=== PATIENT | male | born 1940 | race Caucasian/White ===

== ENCOUNTER → 2017-04-06 | Outpatient (CLI) | payer MEDICARE ==
[~2017-04-06] MED LIST: CETI10; [UNRECOGNIZED DRUG - REMARK]
[2017-04-06 12:34] LABS: BASOPHILS ABSOLUTE AUTO 0.08 K/mm3 (0.00-0.23); BASOPHILS PERCENT AUTO 0 % (0-2); EOSINOPHILS ABSOLUTE AUTO 0.01 K/mm3 (0.00-0.68); EOSINOPHILS PERCENT AUTO 0 % (0-6); Hematocrit 42.6 % (37.0-53.0); Hemoglobin 14.7 g/dL (13.5-17.5); Mean Corpuscular HGB 32.9 pg (26.0-34.0); Mean Corpuscular HGB Conc 34.5 g/dL (31.5-36.5); Mean Corpuscular Volume 95 fL (80-100); Mean Platelet Volume 9.7 fL (9.1-12.4); Platelet Count 124 K/mm3 (150-400); RDW Coefficient Variation 13.1 % (11.7-14.2); RDW Standard Deviation 45.6 fL (35.1-46.3); Red Blood Cell Count 4.47 M/mm3 (4.30-5.90); White Blood Cell Count 25.08 K/mm3 (4.00-11.30)
[2017-04-06 12:38] LABS: Alanine Aminotransfer (ALT/SGP 33 U/L (12-78); Albumin, Blood 3.7 g/dL (3.4-5.0); Albumin/Globulin Ratio 1.3 (0.8-1.8); Alk Phos 92 U/L (40-126); Anion Gap 5 mmol/L (6-16); Aspartate Aminotrans (AST/SGOT 25 U/L (12-37); Bilirubin, Total 0.5 mg/dL (0.1-1.0); Blood Urea Nitrogen 14 mg/dL (8-24); Bun/Creatinine Ratio 14.1 (12.0-20.0); CO2, Blood 30 mmol/L (21-32); Calcium, Blood 8.6 mg/dL (8.5-10.1); Chloride, Blood 101 mmol/L (98-108); Creatinine, Blood 0.99 mg/dL (0.60-1.20); Globulin, Blood 2.8 g/dL (2.2-4.0); Glomerular Filtration Rate >60 (60-); Glucose, Blood 109 mg/dL (70-99); Potassium, Blood 3.7 mmol/L (3.5-5.5); Sodium, Blood 136 mmol/L (136-145); Total Protein, Blood 6.5 g/dL (6.4-8.2)
[2017-04-06 14:03] LABS: BAND PERCENT MAN 1 % (0-8); BASOPHILS PERCENT MAN 0 % (0-2); EOSINOPHILS PERCENT MAN 0 % (0-6); LYMPHOCYTES % ATYPICAL MANUAL 7 % (0-0); MONOCYTES PERCENT MAN 1 % (4-13); SEG NEUTROPHILS PERCENT MAN 8 % (41-73); TOTAL CELLS COUNTED 100
[2017-04-06 14:06] LABS: IMMATURE GRAN ABSOLUTE AUTO 0.04 K/mm3 (0.00-0.10); IMMATURE GRAN PERCENT AUTO 0 % (0-1); LYMPHOCYTES ABSOLUTE AUTO 20.92 K/mm3 (0.84-5.20); MONOCYTES ABSOLUTE AUTO 1.31 K/mm3 (0.16-1.47); MONOCYTES PERCENT AUTO 5 % (4-13); NEUTROPHILS ABSOLUTE AUTO 2.72 K/mm3 (1.96-9.15); NEUTROPHILS PERCENT AUTO 11 % (41-73)
[2017-04-06 14:08] LABS: LYMPHOCYTES ABSOLUTE MAN 22.57 K/mm3 (0.84-5.20); LYMPHOCYTES PERCENT MAN 83 % (21-46)
[2017-04-06 14:12] LABS: LYMPHOCYTES PERCENT AUTO 83 % (21-46)
== END ==
LOC: LAB SHORT 12:17
PROVIDERS: Emergency Medicine
DX: R06.00 Dyspnea, unspecified (principal)
CPT/HCPCS: 80053; 85025

== ENCOUNTER → 2019-05-22 | Outpatient (CLI) | payer MEDICARE ==
[2019-05-22 18:37] LABS: BASOPHILS ABSOLUTE AUTO 0.05 K/mm3 (0.00-0.23); BASOPHILS PERCENT AUTO 0 % (0-2); EOSINOPHILS ABSOLUTE AUTO 0.05 K/mm3 (0.00-0.68); EOSINOPHILS PERCENT AUTO 0 % (0-6); IMMATURE GRAN ABSOLUTE AUTO 0.09 K/mm3 (0.00-0.10); IMMATURE GRAN PERCENT AUTO 1 % (0-1); LYMPHOCYTES ABSOLUTE AUTO 2.24 K/mm3 (0.84-5.20); LYMPHOCYTES PERCENT AUTO 18 % (21-46); MONOCYTES ABSOLUTE AUTO 0.71 K/mm3 (0.16-1.47); MONOCYTES PERCENT AUTO 6 % (4-13); Mean Corpuscular HGB 32.1 pg (26.0-34.0); Mean Corpuscular Volume 94 fL (80-100); Mean Platelet Volume 9.6 fL (9.1-12.4); NEUTROPHILS ABSOLUTE AUTO 9.33 K/mm3 (1.96-9.15); NEUTROPHILS PERCENT AUTO 75 % (41-73); Platelet Count 226 K/mm3 (150-400); RDW Coefficient Variation 14.5 % (11.7-14.2); RDW Standard Deviation 49.7 fL (35.1-46.3); Red Blood Cell Count 4.99 M/mm3 (4.30-5.90); White Blood Cell Count 12.47 K/mm3 (4.00-11.30)
[2019-05-22 18:46] LABS: Albumin, Blood 3.9 g/dL (3.4-5.0); Albumin/Globulin Ratio 1.1 (0.8-1.8); Bilirubin, Total 0.4 mg/dL (0.1-1.0); Bun/Creatinine Ratio 19.5 (12.0-20.0); Calcium, Blood 9.2 mg/dL (8.5-10.1); Creatinine, Blood 1.18 mg/dL (0.60-1.20); Globulin, Blood 3.4 g/dL (2.2-4.0); Potassium, Blood 4.1 mmol/L (3.5-5.5); Total Protein, Blood 7.3 g/dL (6.4-8.2)
== END | disposition home or self-care (01) ==
LOC: LAB SHORT 18:32 → LAB EV 18:32
PROVIDERS: Physician Assistant
DX: R34 Anuria and oliguria (principal)
CPT/HCPCS: 80053; 85025

== ENCOUNTER 2020-09-23 22:48 | Emergency (ER) | payer OTHER, MEDICARE ==
[~2020-09-23] VITALS: Ht 172.7 cm; Wt 56.7 kg
[2020-09-24] MEDS ORDERED: Norco 5-325 Ta1 EACH PO (11:25)
== END 2020-09-24 02:51 | disposition home or self-care (01) ==
LOC: ER 22:48
DX: S01.01XA Laceration without foreign body of scalp, initial encounter (principal); M25.512 Pain in left shoulder; W01.10XA Fall on same level from slipping, tripping and stumbling with subsequent striking against unspecified object, initial encounter
CPT/HCPCS: 12001; 70450; 73030; 96374-59; 99284-25; J2405

== ENCOUNTER 2021-04-22 19:54 | Inpatient (IN) | payer MEDICARE ==
[~2021-04-22] VITALS: Ht 177.8 cm; Wt 63.5 kg
[~2021-04-22 19:54] MED LIST changes: +Norco 5-325 Ta1 EACH PO
[2021-04-22] MEDS ORDERED: BUME2 PO (20:15)
[2021-04-22] MEDS ORDERED: PRAVASTATIN SOD40 MG PO (20:15)
[2021-04-22] MEDS ORDERED: Ventolin/Prove6.7 GM INH (20:15)
[2021-04-22 20:18] LABS: Hematocrit 44.2 % (37.0-53.0); Hemoglobin 14.8 g/dL (13.5-17.5); Mean Corpuscular HGB 31.2 pg (26.0-34.0); Mean Corpuscular HGB Conc 33.5 g/dL (31.5-36.5); Mean Corpuscular Volume 93 fL (80-100); Mean Platelet Volume 10.1 fL (9.1-12.4); NRBC ABSOLUTE 0.03 K/mm3 (0.00-0.02); NRBC Auto 0.1 /100 WBC (0.0-0.2); Platelet Count 180 K/mm3 (150-400); RDW Coefficient Variation 13.4 % (11.7-14.2); RDW Standard Deviation 45.8 fL (35.1-46.3); Red Blood Cell Count 4.75 M/mm3 (4.30-5.90); White Blood Cell Count 29.16 K/mm3 (4.00-11.30)
[2021-04-22 20:59] LABS: Albumin, Blood 2.9 g/dL (3.4-5.0); Albumin/Globulin Ratio 0.9 (0.8-1.8); Bilirubin, Total 0.5 mg/dL (0.1-1.0); Bun/Creatinine Ratio 28.6 (12.0-20.0); Creatinine, Blood 1.19 mg/dL (0.60-1.20); Globulin, Blood 3.3 g/dL (2.2-4.0); Potassium, Blood 3.6 mmol/L (3.5-5.5); Thyroid Stimulating Hormone 1.87 uIU/mL (0.360-4.800); Total Protein, Blood 6.2 g/dL (6.4-8.2)
[2021-04-22 21:03] LABS: BASOPHILS PERCENT MAN 0 % (0-2); EOSINOPHILS ABSOLUTE MAN 0.87 K/mm3 (0.00-0.68); EOSINOPHILS PERCENT MAN 3 % (0-6); LYMPHOCYTES % ATYPICAL MANUAL 3 % (0-0); LYMPHOCYTES ABSOLUTE MAN 20.99 K/mm3 (0.84-5.20); LYMPHOCYTES PERCENT MAN 69 % (21-46); MONOCYTES ABSOLUTE MAN 1.45 K/mm3 (0.16-1.47); MONOCYTES PERCENT MAN 5 % (4-13); MYELOCYTE ABSOLUTE MAN 0.29 K/mm3 (0.00-0.00); MYELOCYTE PERCENT MAN 1 % (0-0); NEUTROPHILS ABSOLUTE MAN 5.54 K/mm3 (1.96-9.15); SEG NEUTROPHILS PERCENT MAN 19 % (41-73); TOTAL CELLS COUNTED 100
[2021-04-23 00:37] LABS: Hematocrit 41.4 % (37.0-53.0); Hemoglobin 13.7 g/dL (13.5-17.5); Mean Corpuscular HGB 31.3 pg (26.0-34.0); Mean Corpuscular HGB Conc 33.1 g/dL (31.5-36.5); Mean Corpuscular Volume 95 fL (80-100); Mean Platelet Volume 9.8 fL (9.1-12.4); Platelet Count 162 K/mm3 (150-400); RDW Coefficient Variation 13.6 % (11.7-14.2); RDW Standard Deviation 47.1 fL (35.1-46.3); Red Blood Cell Count 4.38 M/mm3 (4.30-5.90); White Blood Cell Count 25.85 K/mm3 (4.00-11.30)
[2021-04-23 00:57] LABS: Albumin, Blood 2.8 g/dL (3.4-5.0); Bilirubin, Total 0.4 mg/dL (0.1-1.0); Bun/Creatinine Ratio 26.5 (12.0-20.0); Calcium, Blood 8.7 mg/dL (8.5-10.1); Creatinine, Blood 1.17 mg/dL (0.60-1.20); Globulin, Blood 2.8 g/dL (2.2-4.0); Potassium, Blood 3.4 mmol/L (3.5-5.5); Total Protein, Blood 5.6 g/dL (6.4-8.2)
[2021-04-23 01:00] LABS: BAND PERCENT MAN 1 % (0-8); BASOPHILS PERCENT MAN 0 % (0-2); EOSINOPHILS PERCENT MAN 0 % (0-6); LYMPHOCYTES % ATYPICAL MANUAL 2 % (0-0); LYMPHOCYTES PERCENT MAN 87 % (21-46); MONOCYTES ABSOLUTE MAN 0.77 K/mm3 (0.16-1.47); MONOCYTES PERCENT MAN 3 % (4-13); NEUTROPHILS ABSOLUTE MAN 2.06 K/mm3 (1.96-9.15); SEG NEUTROPHILS PERCENT MAN 7 % (41-73); TOTAL CELLS COUNTED 100
[2021-04-23 04:29] LABS: Influenza A, PCR NEGATIVE (NEGATIVE); Influenza B, PCR NEGATIVE (NEGATIVE); Resp Syncytial Virus, PCR NEGATIVE (NEGATIVE); SARS-Cov-2 (COVID-19) PCR, MMC NEGATIVE (NEGATIVE)
[2021-04-23 05:59] LABS: Source, Urine Clean Catch
[2021-04-23 06:04] LABS: Bilirubin, Urine Neg (Neg); Blood, Urine Neg (Neg); Glucose Qualitative, Urine Neg (Neg); Ketones, Urine 1+ (Neg); Leukocyte Esterase, Urine Neg (Neg); Nitrite, Urine Neg (Neg); Protein, Urine 1+ (Neg); Urobilinogen, Urine NORM (Normal)
--- NOTE | 2021-04-23 06:21 | NUR ---
NEW ADMIT FROM THE ED. SOFTWARE TEAM LEADER COMPLETED SPUTUM SAMPLE , COVID TEST, AND UA ORDERS IN CHART. PATIENT ON 3 LITERS NASAL CANNULA. PATIENT SKIN APPEARS TO BE GOOD MINUS UPPER EXTREMITY BRUISING. PATIENT CURRENTLY IN BED WITH STABLE VITALS. WILL REPORT TO ONCOMING NURSE UPON ARRIVAL.
[2021-04-23 06:27] LABS: Appearance, Urine Clear (Clear); Color, Urine Yellow (P-Yellow)
[2021-04-23] MEDS ORDERED: POTA10T PO (09:38)
[2021-04-23] MEDS ORDERED: ASPI81CH PO (09:41)
[2021-04-23] MEDS ORDERED: B-121000 MC7 PO (09:43)
[2021-04-23] MEDS ORDERED: Hair, Skin & N1 EACH PO (09:43)
[2021-04-23] MEDS ORDERED: Vitamin D1000 UNI1 PO (09:44)
--- NOTE | 2021-04-23 11:02 | NUR ---
LEFT VOCERA VMAIL FOR PT AND OT ABOUT EVALUTATIONS. TELE SR 80 PER TRANSFER SPECIALIST.
--- NOTE | 2021-04-23 14:12 | NUR ---
UPDATED PATIENT'S SPOUSE VIA PHONE.
--- NOTE | 2021-04-23 15:56 | NUR ---
NEWLY ADMITTED LAST NIGHT. O2 AT 3 LPM NASAL CANNULA. RESPIRATIONS EVEN AND UNLABORED. PT EVALUATED PATIENT. STATED HE WOULD NEED GAIT BELT AND WALKER TO [facility] BUT CAN NOT BE LEFT ALONE DUE TO BALANCE ISSUES. PATIENT HAD A COUPLE EPISODES OF HALLUCINATIONS BRIEFLY TODAY STATING HE SAW A BIRD IN THE ROOM, THAT HIS FEET WERE DISCOLORED WHEN THEY WEREN'T. PATIENT REASSURED AND REORIENTED BUT OTHER THAN THOSE TWO TIMES HE WAS ORIENTED X 4 TODAY. UPDATED TWO FAMILY MEMBERS VIA PHONE TODAY. MEDICATED PER E-MAR. IS IN USE. TOLERATED PO FOOD AND FLUIDS. HE WAS VERY IMPULSIVE WANTING TO JUMP OUT OF BED A FEW TIMES. BED ALARM IN USE. WILL MONITOR.
--- NOTE | 2021-04-24 04:04 | NUR ---
PATIENT WAS IN HIS BED UPON ARRIVAL AND SHIFT CHANGE. PATIENT DECLINES ANY PAIN. PATIENT CONTINUES TO GET MORE CONFUSED THE LATER IT GETS. PATIENT STILL HAS A RED BLANCHABLE AREA ON RIGHT HIP. DRESSING PROVIED FOR PROTECTION FROM FURTHER BREAKDOWN. PATIENT STATED THAT HE SLEEPS ON THAT SIDE EVER SINCE BREAKING BONE IN LEFT ARM. NO OTHER CONCERNS AT THIS TIME. WILL REPORT TO ONCOMING NURSE UPON ARRIVAL.
[2021-04-24 04:36] LABS: Hematocrit 37.6 % (37.0-53.0); Hemoglobin 12.5 g/dL (13.5-17.5); Mean Corpuscular HGB 31.1 pg (26.0-34.0); Mean Corpuscular HGB Conc 33.2 g/dL (31.5-36.5); Mean Corpuscular Volume 94 fL (80-100); Mean Platelet Volume 9.9 fL (9.1-12.4); NRBC ABSOLUTE 0.02 K/mm3 (0.00-0.02); NRBC Auto 0.1 /100 WBC (0.0-0.2); Platelet Count 167 K/mm3 (150-400); RDW Coefficient Variation 13.7 % (11.7-14.2); RDW Standard Deviation 47.2 fL (35.1-46.3); Red Blood Cell Count 4.02 M/mm3 (4.30-5.90); White Blood Cell Count 20.46 K/mm3 (4.00-11.30)
[2021-04-24 05:04] LABS: Anion Gap 6 mmol/L (6-16); Blood Urea Nitrogen 21 mg/dL (8-24); Bun/Creatinine Ratio 20.8 (12.0-20.0); CO2, Blood 26 mmol/L (21-32); Calcium, Blood 8.3 mg/dL (8.5-10.1); Chloride, Blood 110 mmol/L (98-108); Creatinine, Blood 1.01 mg/dL (0.60-1.20); Glomerular Filtration Rate >60 (60-); Glucose, Blood 84 mg/dL (70-99); Potassium, Blood 3.8 mmol/L (3.5-5.5); Sodium, Blood 142 mmol/L (136-145)
[2021-04-24 07:20] LABS: BASOPHILS PERCENT MAN 0 % (0-2); EOSINOPHILS PERCENT MAN 1 % (0-6); LYMPHOCYTES % ATYPICAL MANUAL 3 % (0-0); LYMPHOCYTES PERCENT MAN 86 % (21-46); MONOCYTES PERCENT MAN 1 % (4-13); NEUTROPHILS ABSOLUTE MAN 1.84 K/mm3 (1.96-9.15); SEG NEUTROPHILS PERCENT MAN 9 % (41-73); TOTAL CELLS COUNTED 100
--- NOTE | 2021-04-24 09:32 | NUR ---
@ 0991, TELE SR 91.
--- NOTE | 2021-04-24 11:17 | NUR ---
PATIENT ASSISTED BACK TO BED FROM CHAIR AFTER PT SESSION.
--- NOTE | 2021-04-24 13:12 | NUR ---
Initial Interview with [facility] Laboratory Technician 1. Who did you speak with? Spoke with patient 2. What is the patient's prior level of functions? Patient lives independently with spouse Jessica. Patient is able to perform ADLs with minimal assistance. He uses a 2 WW and also has a rollator. He uses a wheelchair when he is out and about for long duration of time. He has access to a shower chair, but able to shower without the need of a chair at this time. His perform housekeeping and cooking. Patient has a ramp on the property; single story dwelling. 3. Is the patient and/or family able to provide transportation to and from doctor's appointments and pick and shovel man prescriptions? 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 He is able to provide transportation to and from appointments and pick and shovel man medication from pharmacy as needed. 4. Does patient still drive? Yes 5. POA/PCP/NOK: Spouse Jessica [phone] 6. Discharge goals: Date TBD -Home Health preference: [facility] -DME: TBD -Medication Management: self manages -Preferred Pharmacy: [facility] -Housekeeping/Cooking: performs housekeeping and cooking 7. List barriers to discharge: None known at this time 8. Discharge Plan: TBD 9. PCP Follow up appointment: Will be scheduled within seven calendar days of discharge
--- NOTE | 2021-04-24 18:34 | NUR ---
PT/OT WORKED WITH PATIENT TODAY. RESPIRATIONS EVEN AND UNLABORED. O2 AT 3 LPM PER NASAL CANNULA. PT/OT WORKED WITH PATIENT TODAY. PATIENT SAT IN THE CHAIR AFTER PT SESSION FOR A SHORT PERIOD OF TIME BECAUSE HE WANTED TO REST. MEDICATED PER E=MAY. BED ALARM IN USE. PATIENT PLEASANT AND COOPERATIVE, ORIENTED TO SELF AND TO SITUATION AT TIMES. REPORT WILL BE GIVEN TO ONCOMING SHIFT AT 1845.
[2021-04-25 05:18] LABS: Hematocrit 41.6 % (37.0-53.0); Hemoglobin 13.6 g/dL (13.5-17.5); Mean Corpuscular HGB 30.9 pg (26.0-34.0); Mean Corpuscular HGB Conc 32.7 g/dL (31.5-36.5); Mean Corpuscular Volume 95 fL (80-100); Mean Platelet Volume 10.4 fL (9.1-12.4); Platelet Count 200 K/mm3 (150-400); RDW Coefficient Variation 13.7 % (11.7-14.2); White Blood Cell Count 23.42 K/mm3 (4.00-11.30)
--- NOTE | 2021-04-25 05:27 | NUR ---
TACHYPNIC AND TREMULOUS AT BEGINNING OF SHIFT. PATIENT KEPT ASKING FOR MORE BLANKETS UNTIL THIS RN HAD TO REMOVE THEM DUE TO A TEMP OF 100.0. . 30 MINUTES LATER, SPOT CHECK WAS COMPLETED AND TEMP WAS DOWN TO 97.6. PATIENT SLEPT WELL AFTER AROUND MIDNIGHT. CIRILO HAD NO COMPLAINTS OF PAIN OR DISCOMFORT OVERNIGHT. LUNG SOUNDS DIM WITH WHEEZES HEARD THROUGHOUT
[2021-04-25 05:48] LABS: Alanine Aminotransfer (ALT/SGP 26 U/L (12-78); Albumin, Blood 2.3 g/dL (3.4-5.0); Albumin/Globulin Ratio 0.8 (0.8-1.8); Alk Phos 75 U/L (50-136); Anion Gap 4 mmol/L (6-16); Aspartate Aminotrans (AST/SGOT 28 U/L (12-37); Bilirubin, Total 0.5 mg/dL (0.1-1.0); Blood Urea Nitrogen 17 mg/dL (8-24); Bun/Creatinine Ratio 17.6 (12.0-20.0); CO2, Blood 28 mmol/L (21-32); Calcium, Blood 8.3 mg/dL (8.5-10.1); Chloride, Blood 109 mmol/L (98-108); Creatinine, Blood 0.96 mg/dL (0.60-1.20); Glomerular Filtration Rate >60 (60-); Glucose, Blood 109 mg/dL (70-99); Magnesium, Blood 2.2 mg/dL (1.6-2.4); Phosphorus, Blood 2.3 mg/dL (2.5-4.9); Sodium, Blood 141 mmol/L (136-145); Total Protein, Blood 5.3 g/dL (6.4-8.2)
[2021-04-25 06:42] LABS: BASOPHILS PERCENT MAN 0 % (0-2); LYMPHOCYTES % ATYPICAL MANUAL 4 % (0-0)
[2021-04-25 06:44] LABS: EOSINOPHILS ABSOLUTE MAN 0.23 K/mm3 (0.00-0.68); EOSINOPHILS PERCENT MAN 1 % (0-6); LYMPHOCYTES ABSOLUTE MAN 16.86 K/mm3 (0.84-5.20); LYMPHOCYTES PERCENT MAN 68 % (21-46); MONOCYTES ABSOLUTE MAN 0.93 K/mm3 (0.16-1.47); MONOCYTES PERCENT MAN 4 % (4-13); NEUTROPHILS ABSOLUTE MAN 5.38 K/mm3 (1.96-9.15); SEG NEUTROPHILS PERCENT MAN 23 % (41-73); TOTAL CELLS COUNTED 100
--- NOTE | 2021-04-25 09:32 | NUR ---
TELEMETRY SINUS TACH 103.
[2021-04-25] MEDS ORDERED: APHEN325 M1 PO (13:11)
[2021-04-25] MEDS ORDERED: AZIT500 PO (13:12)
[2021-04-25] MEDS ORDERED: CEFP200 PO (13:12)
[2021-04-25] MEDS ORDERED: TUSSIN MUC100 MG/5 M PO (13:13)
[2021-04-25] MEDS ORDERED: ENOX40I SC (13:13)
[2021-04-25] MEDS ORDERED: FLUTICASONE-SA1 EA11 INH (13:14)
[2021-04-25] MEDS ORDERED: Nicoderm Cq1 EAC1 TOP (13:16)
[2021-04-25] MEDS ORDERED: IPRAT-ALBUT 0.5-3 ML INH (13:16)
[2021-04-25] MEDS ORDERED: VISBIOME 112.51 EACH PO (13:16)
[2021-04-25] MEDS ORDERED: BUPR150ER PO (13:17)
[2021-04-25] MEDS ORDERED: Prednisone10 MG (13:18)
--- NOTE | 2021-04-25 16:21 | NUR ---
COVID TEST DONE AND SENT TO LAB. PATIENT ACCEPTED TO [facility] PENDING NEGATIVE COVID TEST.
[2021-04-25 17:12] LABS: Influenza A, PCR NEGATIVE (NEGATIVE); Influenza B, PCR NEGATIVE (NEGATIVE); Resp Syncytial Virus, PCR NEGATIVE (NEGATIVE); SARS-Cov-2 (COVID-19) PCR, MMC NEGATIVE (NEGATIVE)
--- NOTE | 2021-04-25 17:34 | NUR ---
CALLED REPORT TO FLORECITA THOMPSON AT [facility]. PATIENT DISCHARGED VIA WHEELCHAIR WITH [facility] EMT ISABELLA. AWAKE AND ALERT. O2 IN USE WITH TRANSPORT. NO DISTRESS NOTED.
--- NOTE | 2021-04-25 17:41 | NUR ---
@ 1303, PATIENT WAS FOUND EOB CONFUSED. REFUSED TO SIT BACK IN THE BED FOR THE BED ALARM TO BE TURNED ON OR THE CHAIR. HE STARTED GRABBING STAFF BADGES AND REFUSING TO COOPERATE. SECURITY WAS CALLED TO BE ON STANDBY. IV WAS REMOVED WITH [employer]ELCO INTACT. PRESSURE DRESSING WAS APPLIED. MENDER KNIT GOODS WAS REMOVED AND POULTRY TENDER NOTIFIED. PATIENT WAS CLEANSED DUE TO URINE ALL OVER HIM AND THE BED AND DRESSED INTO PERSONAL CLOTHING. HE PULLED HIS O2 OFF AND REFUSED TO PUT IT BACK ON EARLY IN THE INCIDENT AND EVENTUALLY DID AGREE TO LETTING THE OXYGEN BE REAPPLIED.
--- NOTE | 2021-04-26 08:10 | NUR ---
Per Dr. Travis discharge appropriate. Patient does not oppose discharge. Patient discharged to Shelter Facility: [facility]. Date of discharge: 04/25/2021 Date of admission: 04/22/2021 Provisional diagnosis at time of admission: Pneumonia Final Diagnosis at time of discharge: Pneumonia Transportation provided by: [facility]/with Oxygen provided by [facility] Location/Residence: [address] [place] [address]/[phone] DME Ordered: None needed/patient may need Oxygen set up at home after SNF (home O2 eval was not completed). Follow-ups needed: [facility] will contact patient to schedule hospital follow-up visit. Reinforced need to attend follow-up with option of telehealth appointment. Reinforced importance of scheduling and attending follow up with telehealth as an option. [facility] will coordinate appt. Provider/PCP: ANNELISE High When: WITHIN 1 WEEK Specialty: N/A When: N/A Confirmed numbers: Spouse Jessica [phone] Daughter [phone] Comment: Explained to patient to contact PCP if any questions regarding medication management, social service needs, and if condition worsens go to Urgent Care/ER (patient discharged to SNF). No barriers to discharge. Patient has a strong support network.
== END 2021-04-25 17:50 | DRG 871 ==
LOC: ER 19:54 → MEDS 22:27 → EDBEDREQ 23:49 → MEDS 04-23 00:20
PROVIDERS: Emergency Medicine; Hospitalist; Internal Medicine; ADMIT Internal Medicine
DX: A41.9 Sepsis, unspecified organism (principal); J12.9 Viral pneumonia, unspecified; J96.01 Acute respiratory failure with hypoxia; J44.0 Chronic obstructive pulmonary disease with (acute) lower respiratory infection; J44.1 Chronic obstructive pulmonary disease with (acute) exacerbation; C91.10 Chronic lymphocytic leukemia of B-cell type not having achieved remission; R64 Cachexia; Z20.822 Contact with and (suspected) exposure to COVID-19; R65.20 Severe sepsis without septic shock; R62.7 Adult failure to thrive; Z68.20 Body mass index [BMI] 20.0-20.9, adult; E87.6 Hypokalemia; E78.5 Hyperlipidemia, unspecified; F17.210 Nicotine dependence, cigarettes, uncomplicated; Z71.6 Tobacco abuse counseling; Z79.899 Other long term (current) drug therapy
CPT/HCPCS: 0241U; 36415; 71045; 71046; 73502; 80048; 80053; 82947; 83605; 83735; 83880; 84100; 84145; 84443; 85025; 87040; 93005; 93010; 94640; 94664; 94667; 94760; 96365; 96366; 96372; 96375; 97110; 97116; 97129; 97130; 97162; 97166; 97530; 99285-25; A9270; J0456; J0696; J1650; J7030; J7050